=== PATIENT | male | born 2000 | race Two or more races ===

== ENCOUNTER 2024-12-05 02:30 | Emergency (ER) | payer MEDICAID, SELFPAY ==
[2024-12-05 02:40] VITALS: BP 111/56; PULSE 110; RESP 16; TEMP 36.9; O2SAT 94
[2024-12-05 02:42] VITALS: PULSE 92; RESP 18; O2SAT 98
[2024-12-05 02:48] VITALS: BMI 19.3
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
[2024-12-05 03:57] LABS: Amphetamine/Methamp Scrn,U Negative (Negative); Barbiturate Screen,Urine Negative (Negative); Benzodiazepines Screen,Urine Negative (Negative); Benzoylecgonine Screen, Ur Negative (Negative); Fentanyl Screen,Urine Negative (Negative); Opiate Screen,Urine Negative (Negative); THC Screen,Urine Negative (Negative)
[2024-12-05 03:59] LABS: Alcohol, Blood Medical 159.9 mg/dL (0-10.0)
[2024-12-05 04:44] VITALS: BP 111/56; PULSE 86; RESP 16; TEMP 36.9; O2SAT 97
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
[2024-12-05 05:58] VITALS: BP 109/68; PULSE 85; RESP 16; TEMP 36.9; O2SAT 97
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
== END 2024-12-05 07:09 | disposition home or self-care (01) ==
PROVIDERS: Emergency Medicine; Emergency Provider Emergency Medicine
DX: S00.83XA Contusion of other part of head, initial encounter (principal); Y04.0XXA Assault by unarmed brawl or fight, initial encounter; F10.129 Alcohol abuse with intoxication, unspecified; Y90.9 Presence of alcohol in blood, level not specified; M54.2 Cervicalgia
CPT/HCPCS: 36415; 70450; 72125; 80307; 80320; 99284; G0480

== ENCOUNTER 2024-12-05 18:34 | Emergency (ER) | payer MEDICAID, SELFPAY ==
[2024-12-05 19:39] VITALS: BP 136/87; PULSE 75; RESP 18; TEMP 37.3; O2SAT 98
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
--- NOTE | 2024-12-05 19:51 | EDNOTE_ITS ---
Upper Extremity Injury RME/HPI General Chief Complaint: Hand/Wrist Problems Stated Complaint: FRACTURE RIGHT FINGER Time Seen by Provider: 12/05/24 18:49 Arrival date/time: 12/05/24 18:34 RME / HPI RME / HPI narrative: 24 years old male patient was brought in for evaluation regarding pain to the right index finger. Patient was seen earlier this morning after tonic-clonic seizure. CT scan of the head and neck was done and all came back unremarkable. Patient today came back because of pain to the right index finger. Denies any other complaints no medication was taken prior to arrival. Related Data Allergies Allergy/AdvReac Type Severity Reaction Status Date / Time No Known Allergies Allergy Verified 12/05/24 18:37 Review of Systems Review of Systems Narrative Review of Systems: Review of system reviewed and within normal limits except mentioned in HPI ED Exam Narrative Physical exam: VITAL SIGNS: Reviewed. GENERAL APPEARANCE: Alert and interactive, follows commands, no acute distress, HEAD AND FACE: Non-traumatic. ENT: PERRL, pink conjunctivitis, eyelid no trauma, Mucous membrane moist. NECK: Supple, nontender, no nuchal rigidity. CHEST: No tenderness, no crepitus, no paradoxical movement, no retractions. LUNGS: Clear, well ventilated, symmetric, no rales, no wheezing, no ronchi, no stridor, good breath sounds bilaterally. HEART: Regular rate, regular rhythm, no murmur, no gallops. ABDOMEN: Soft, positive bowel sounds, nondistended, no guarding, nontender, no rebound, no masses, RECTAL: Deferred. GENITAL: Deferred. NEUROLOGICAL: Gross motor function intact sensory function intact, Appropriate for age. MUSCULOSKELETAL: low back nontender, full range of motion. EXTREMITIES: Right index finger tenderness, no deformity, full range of motion. SKIN: Color pink, dry, no rash, no lacerations, no abrasions, no contusions. LYMPHATICS: Deferred. Course Quality Measures none Orders Category Date Time Status XR finger RT min 2V Stat Exams 12/05/24 19:50 Completed Vital Signs Vital signs: Vital Signs Temperature 99.2 F 12/05/24 19:39 Pulse Rate 75 12/05/24 19:39 Respiratory Rate 18 12/05/24 19:39 Blood Pressure 136/87 H 12/05/24 19:39 Pulse Oximetry (%) 98 12/05/24 19:39 Oxygen Delivery Method Room Air 12/05/24 19:39 Extremity Injury [facility] Narrative [facility] Narrative:: 24 years old male patient was brought in for evaluation regarding pain to the right index finger. Patient was seen earlier this morning after tonic-clonic seizure. CT scan of the head and neck was done and all came back unremarkable. Patient today came back because of pain to the right index finger. Denies any other complaints no medication was taken prior to arrival. X-ray of the hand came back unremarkable. Results discussed with the patient. Patient appears nontoxic and hemodynamically stable. Patient discharged home and instructed to follow-up with primary care provider in 24 to 48 hours. Instructed to return to the emergency department immediately if worsening of symptoms Patient data External records reviewed:: None Clinical information provided by:: patient Social determinants that could affect healthcare access:: none Patient has the following chronic illnesses:: None How is presenting disease/condition affected by chronic disease/condition?: no chronic disease Evaluation data The following diagnostics were reviewed and interpreted by me:: radiology exam(s) Lab and/or radiology exams considered but not ordered:: None Interpretation Summary: See results in MDM Medications / Prescriptions Medications or Prescriptions considered but not ordered:: None Medication administrations:: None Consultations Consultation(s) initiated? (list below): No Diagnosis Upper Extremity Injury Differential Diagnosis: finger sprain and other (Finger contusion, finger fracture) Most likely diagnosis given after review of the tests above:: Finger pain Admission Indicated Admission indicated?: not indicated Admission Request Was there a request for admission?: No Disposition Plan Disposition Plan: Discharge Discharge Attestation Discharge Attestation: The patient and all family members were given an opportunity to ask questions and understood the discharge instructions. Discharge instructions specifically effects, indications for sooner follow up or return to the emergency department, and the expected course of current diagnosis. Patient condition: Stable Discharge Plan Plan Patient Disposition: HOME (Self Care) Disposition Comment: Stable Prescriptions/Referrals Referrals: No Primary/Family,Physician [Primary Care Provider] - In 1 week Problem List Clinical Impression: Finger pain Patient/Caregiver Discharge Instructions Discharge Activity: activity as tolerated Education Materials: ED Finger Contusion Additional Instructions: Thank you for the opportunity for serving you today. You are stable for discharged . You are advised to: Follow-up with your PCP in 1 to 2 days Return to ED for worsening of symptoms Increase oral fluids Take [id number] Tylenol Motrin as needed for pain Print Language: Sudanese Stand Alone Forms: Liana Award Info., Patient Portal Info Letter PA/CEMENTING MACHINE OPERATOR Supervising Physician PA/CEMENTING MACHINE OPERATOR Supervising Physician: MD Nidhi
== END 2024-12-05 22:35 | disposition home or self-care (01) ==
PROVIDERS: Emergency Provider Emergency Medicine
DX: M79.644 Pain in right finger(s) (principal)
CPT/HCPCS: 73140; 99283

== ENCOUNTER 2025-02-18 16:25 | Emergency (ER) | payer MEDICAID, SELFPAY ==
[2025-02-18 16:25] VITALS: BP 109/67; PULSE 82; RESP 18; TEMP 37.3; O2SAT 97; BMI 28.7
--- NOTE | 2025-02-18 16:34 | EDNOTE_ITS ---
<Statement entered by Kailyn Garcia MD - 02/19/25 23:29> As co-signing physician, I was present and available for consult prn. I concur with the plan and care as documented by the midlevel provider. ED Seizures RME/HPI General Chief Complaint: Seizure Stated Complaint: SEIZURE Time Seen by Provider: 02/18/25 16:31 Arrival date/time: 02/18/25 16:25 RME / HPI RME / HPI Narrative: 24-year-old male patient came in for evaluation regarding witnessed tonic-clonic seizure. Patient was noted to have tonic-clonic seizure, lasting for 1 minute according to EMS. When EMS arrived patient was noted to be having postictal confusion, on my initial evaluation patient is alert and oriented, told me that for the last 2 days he ran out of his valproic acid and Keppra. Currently patient is complaining of headache. Denies any other complaints Related Data Previous Rx's ?Medication ?Instructions ?Recorded cephalexin 500 mg capsule 500 mg PO Q8H 7 days #21 cap s 02/18/25 levetiracetam 1,000 mg tablet 1,000 mg PO BID #60 tabs 02/18/25 (Keppra) valproic acid 250 mg capsule 500 mg (2 x 250 mg) PO BI D #120 02/18/25 caps Allergies Allergy/AdvReac Type Severity Reaction Status Date / Time No Known Allergies Allergy Verified 02/18/25 16:34 Review of Systems Review of Systems Narrative Review of Systems: Review of system reviewed and within normal limits except mentioned in HPI ED Exam Narrative Physical exam: VITAL SIGNS: Reviewed. GENERAL APPEARANCE: Alert and interactive, follows commands, no acute distress, HEAD AND FACE: Non-traumatic. ENT: PERRL, pink conjunctivitis, eyelid no trauma, Mucous membrane moist. NECK: Supple, nontender, no nuchal rigidity. CHEST: No tenderness, no crepitus, no paradoxical movement, no retractions. LUNGS: Clear, well ventilated, symmetric, no rales, no wheezing, no ronchi, no stridor, good breath sounds bilaterally. HEART: Regular rate, regular rhythm, no murmur, no gallops. ABDOMEN: Soft, positive bowel sounds, nondistended, no guarding, nontender, no rebound, no masses, RECTAL: Deferred. GENITAL: Deferred. NEUROLOGICAL: Gross motor function intact sensory function intact, Appropriate for age. MUSCULOSKELETAL: low back nontender, full range of motion. EXTREMITIES: Nontender, full range of motion. SKIN: Color pink, dry, no rash, no lacerations, no abrasions, no contusions. LYMPHATICS: Deferred. Course Quality Measures none Orders Category Date Time Status CBC [CBC] Stat Lab 02/18/25 17:05 Completed CMP [Comprehensive Metabolic Panel] Stat Lab 02/18/25 17:05 Completed UA, C/S IF [Urinalysis, C/S if Indicated] Stat Lab 02/18/25 17:26 Completed Urine Culture Stat Lab 02/18/25 17:26 Received Acetaminophen Tab [Tylenol ES Tab] Med 02/18/25 16:35 Discontinued 1,000 mg PO X1 ONE cefTRIAXone/D5w 1gm IV premix [Rocephin/D5w 1gm IV Med 02/18/25 19:56 Discontinued premix] 1 gm in 50 ml IV X1 levETIRAcetam INJ [Keppra Inj] Med 02/18/25 16:32 Discontinued 1,000 mg IVP X1 ONE Vital Signs Vital signs: Vital Signs Temperature 99.2 F 02/18/25 16:25 Pulse Rate 82 02/18/25 16:25 Respiratory Rate 18 02/18/25 16:25 Blood Pressure 109/67 02/18/25 16:25 Pulse Oximetry (%) 97 02/18/25 16:25 Oxygen Delivery Method Room Air 02/18/25 16:25 Seizure MDM Narrative MDM Narrative:: 24-year-old male patient came in for evaluation regarding witnessed tonic-clonic seizure. Patient was noted to have tonic-clonic seizure, lasting for 1 minute according to EMS. When EMS arrived patient was noted to be having postictal confusion, on my initial evaluation patient is alert and oriented, told me that for the last 2 days he ran out of his valproic acid and Keppra. Currently patient is complaining of headache. Denies any other complaints Laboratory workup significant for UTI. Otherwise unremarkable. Patient received Keppra IV and Suprax and IV, no recurrence of seizure noted in the emergency room. Patient will be sent home on valproic acid and Keppra and Keflex Patient data External records reviewed:: None Clinical information provided by:: patient Social determinants that could affect healthcare access:: none Patient has the following chronic illnesses:: None How is presenting disease/condition affected by chronic disease/condition?: no chronic disease Evaluation data The following diagnostics were reviewed and interpreted by me:: lab results Lab and/or radiology exams considered but not ordered:: None Interpretation Summary: None Medications / Prescriptions Medications or Prescriptions considered but not ordered:: None Medication administrations:: Medication Administration History Discontinued Medications Acetaminophen (Acetaminophen 500 Mg Tablet) 1,000 mg PO X1 ONE Stop: 02/18/25 16:36 Last Admin: 02/18/25 17:07 Dose: 1,000 mg Documented By: QI Ceftriaxone Sodium/Dextrose (Rocephin/D5w 1gm Iv Premix) 1 gm in 50 mls @ 100 mls/hr IV X1 ONE Stop: 02/18/25 20:25 Last Admin: 02/18/25 20:20 Dose: 100 mls/hr Documented By: JORDAN Levetiracetam (Levetiracetam Inj 100 Mg/Ml Vial 5ml) 1,000 mg IVP X1 ONE Stop: 02/18/25 16:33 Last Admin: 02/18/25 17:06 Dose: 1,000 mg Documented By: QI Keppra reaction Tylenol Consultations Consultation(s) initiated? (list below): No Diagnosis Seizure Differential Diagnosis: generalized seizure, epileptic seizure and other (Breakthrough seizure) Most likely diagnosis given after review of the tests above:: Breakthrough seizure Admission Indicated Admission indicated?: not indicated Admission Request Was there a request for admission?: No Disposition Plan Disposition Plan: Discharge Discharge Attestation Discharge Attestation: The patient and all family members were given an opportunity to ask questions and understood the discharge instructions. Discharge instructions specifically effects, indications for sooner follow up or return to the emergency department, and the expected course of current diagnosis. Patient condition: Stable Discharge Plan Plan Patient Disposition: HOME (Self Care) Discharge Disposition comment: Stable Prescriptions/Referrals Prescriptions/Med Rec: New levetiracetam [Keppra] 1,000 mg tablet 1,000 mg PO BID Qty: 60 0RF valproic acid 250 mg capsule 500 mg PO BID Qty: 120 0RF cephalexin 500 mg capsule 500 mg PO Q8H 7 Days Qty: 21 0RF Referrals: No Primary/Family,Physician [Primary Care Provider] - In 1 week Problem List Clinical Impression: Breakthrough seizure Patient/Caregiver Discharge Instructions Discharge Activity: activity as tolerated Education Materials: ED Seizure, Recurrent (Adult) Additional Instructions: Thank you for the opportunity for serving you today. You are stable for discharged . You are advised to: Follow-up with your PCP in 1 to 2 days Return to ED for worsening of symptoms Increase oral fluids Take medication as prescribed Print Language: Uzbek Stand Alone Forms: Liana Award Info., Patient Portal Info Letter PA/SHANNAN Supervising Physician PA/SEWING MACHINE TESTER Supervising Physician: MD Alonso
--- NOTE | 2025-02-18 16:36 | PC.NURSE ---
PT BOUGHT IN S/P SZ. COMBATIVE FOR PARAMEDICS INITIALLY AND PUT INTO RESTRAINTS. MORE COHERENT UPON ARRIVAL TO THE E.D.
[2025-02-18] MEDS: levETIRAcetam INJ 100 MG/ML VIAL 5ML 1000 MG IVP (17:06)
[2025-02-18] MEDS: ACETAMINOPHEN 500 MG TABLET 1000 MG PO (17:07)
[2025-02-18 17:14] LABS: Basophils % (Auto) 0 % (0-2.5); Eosinophils % (Auto) 0 % (0-10); Hematocrit 44.4 % (41.0-53.0); Hemoglobin 15.8 g/dL (13.5-16.0); Immature Granulocytes % (Auto) 0 % (0-0); Immature Granulocytes Auto 0.01 Thou/mm3 (0.00-0.00); Lymphocytes # (Auto) 0.8 Thou/mm3 (1.0-4.8); Lymphocytes % (Auto) 17 % (10-50); Mean Corpuscular HGB Conc 35.6 g/dl (31.0-37.0); Mean Corpuscular Hemoglobin 30.9 pg (25.0-35.0); Mean Corpuscular Volume 87 fL (80-100); Monocytes # (Auto) 0.3 Thou/mm3 (0.0-0.8); Monocytes % (Auto) 6 % (0-12); Neutrophils # (Auto) 3.4 Thou/mm3 (1.8-7.7); Neutrophils % (Auto) 76 % (37-80); Nucleated Red Blood Cell % 0 /100 WBC (0); Platelet Count 180 Thou/mm3 (140-440); RDW Standard Deviation 39.1 fL (35.1-43.9); Red Blood Count 5.12 Miln/mm3 (4.50-5.90); White Blood Count 4.5 Thou/mm3 (3.8-10.6)
[2025-02-18 17:37] LABS: Alanine Aminotransferase 25 U/L (10-49); Albumin, Serum 4.6 gm/dL (3.5-5.0); Albumin/Globulin Ratio 1.8 (1.2-2.2); Alkaline Phosphatase 61 U/L (46-116); Anion Gap 9 (7-16); Aspartate Amino Transferase 34 U/L (0-34); BUN/Creatinine Ratio 12 Ratio (12-20); Bilirubin,Total 0.5 mg/dL (0.3-1.2); Blood Urea Nitrogen 11 mg/dL (9-23); Calcium 9.1 mg/dL (8.3-10.6); Calcium (Corrected) 9.1 mg/dL (8.5-10.1); Carbon Dioxide 27.3 mMol/L (20.0-31.0); Chloride 106 mMol/L (98-107); Creatinine (Component) 0.9 mg/dL (0.6-1.3); Estimated Creatinine Clearance 125.8 mL/min (>60); Globulin 2.6 gm/dL (2.3-3.5); Glucose 117 mg/dL (74-106); Osmolality,Calculated 283 (275-295); Potassium 4.4 mMol/L (3.4-5.1); Sodium 142 mMol/L (136-145); Total Protein 7.2 gm/dL (5.7-8.2); eGFR > 60 See Note
[2025-02-18 17:38] VITALS: BP 119/82; PULSE 65; RESP 13; TEMP 36.8; O2SAT 99
[2025-02-18 17:40] LABS: Collection Type, Urine Clean Catch
[2025-02-18 17:48] LABS: Bilirubin,Urine Negative (Negative); Blood,Urine Trace (Negative); Clarity,Urine Turbid (Clear/Hazy); Color,Urine Yellow (Lt Yel-Yel); Glucose, Urine Negative (Negative); Ketones,Urine 1+ (Negative); Leukocyte Esterase,Urine Negative (Negative); Nitrite,Urine Negative (Negative); PH,Urine 5.5 (5.0-7.0); Protein,Urine 2+ (Neg - Trace); RBC,Urine 57 /hpf (0-3); Specific Gravity,Urine 1.029 (1.001-1.035); Squamous Epithelial Cell,Urine 1 /hpf (0-5); Urobilinogen,Urine Negative mg/dL (0.0-1.0); WBC,Urine 35 /hpf (0-5)
[2025-02-18 17:49] LABS: Culture Indicated,Urine Yes; Sperm,Urine Present
[2025-02-18 19:12] VITALS: BP 129/73; PULSE 60; RESP 17; TEMP 36.8; O2SAT 98
[2025-02-18] MEDS: cefTRIAXone/D5w 1gm IV premix 1 GM/50 ML BAG IV (20:20)
[2025-02-18 20:39] VITALS: BP 113/68; PULSE 62; RESP 20; TEMP 36.8; O2SAT 98
== END 2025-02-18 20:53 | disposition home or self-care (01) ==
PROVIDERS: Nurse Practitioner Family; Emergency Provider Emergency Medicine
DX: G40.909 Epilepsy, unspecified, not intractable, without status epilepticus (principal)
CPT/HCPCS: 36415; 80053; 81001; 85025; 87086; 96365; 96375; 99284; J0696; J1953; A9270